=== PATIENT | female | born 1985 | race Hispanic/Latino ===

== ENCOUNTER 2016-06-24 18:20 | Emergency (ER) | payer BC, OTHER ==
[~2016-06-24] VITALS: Ht 157.5 cm; Wt 95.0 kg
[~2016-06-24 18:20] MED LIST: AUGMENTIN875TAB OR; CIPRO500 MG OR; CIPRO500 MG PO; CIPROFLOXACN500 MG OR; CIPROFLOXACN500 MG PO; LORTAB 5 OR; MEDROL4 M1 PO; NO; PRILOSEC20 MG/CAP PO; PYRIDIUM200 MG PO; SPRINTEC 2828 DAY OR; ZOFRAN ODT8 MG SL
[2016-06-24 18:55] VITALS: BP 123/71
== END 2016-06-24 18:58 | disposition home or self-care (01) | DRG 781 ==
LOC: ED 18:20
DX: O99.512 Diseases of the respiratory system complicating pregnancy, second trimester (principal); J06.9 Acute upper respiratory infection, unspecified; Z3A.18 18 weeks gestation of pregnancy